=== PATIENT | male | born 1960 | race Hispanic/Latino ===

== ENCOUNTER 2023-05-06 21:35 | Emergency (ER) | payer OTHER ==
[~2023-05-06] VITALS: Ht 188 cm; Wt 99.8 kg
[2023-05-06] MEDS ORDERED: HYDRALAZINE HCL 20 MG/ML VIAL ONE (22:35)
[2023-05-06 22:45] LABS: BASOPHILS % 0.4 % (0.0-1.0); EOSINOPHILS % 0.3 % (0.0-6.0); HEMATOCRIT 44.1 % (38.2-49.6); HEMOGLOBIN 14.9 g/dL (14.0-18.0); LYMPHOCYTES # (AUTO) 1.6 (1.0-3.2); LYMPHOCYTES % 22.1 % (18.0-39.1); MEAN CORPUSCULAR HEMOGLOBIN 29.4 pg (28-32); MEAN CORPUSCULAR HGB CONC 33.8 g/dL (31-35); MEAN CORPUSCULAR VOLUME 87.2 fL (81-99); MONOCYTES # (AUTO) 0.7 (0.2-0.8); MONOCYTES % 10.2 % (4.4-11.3); NEUTROPHILS # (AUTO) 4.7 (2.1-6.9); NEUTROPHILS % 66.9 % (38.7-80.0); PLATELET COUNT 235 x10e3/uL (140-360); RED BLOOD COUNT 5.06 x10e6/uL (4.3-5.7); RED CELL DISTRIBUTION WIDTH 13.6 % (11.7-14.4); WHITE BLOOD COUNT 7.05 x10e3/uL (4.8-10.8)
[2023-05-06 22:48] VITALS: BP 207/112
[2023-05-06] MEDS: SODIUM CHLORIDE 0.9% 1000ML 1,000 ML IV STA (22:48)
[2023-05-06] MEDS: HYDRALAZINE HCL 20 MG/ML VIAL IV STA (22:48)
[2023-05-06 23:06] LABS: ALBUMIN 4.2 g/dL (3.5-5.0); ALBUMIN/GLOBULIN RATIO 1.1 (0.8-2.0); ANION GAP 13.9 mmol/L (8-16); BILIRUBIN,TOTAL 1.2 mg/dL (0.2-1.2); CALCIUM 9.9 mg/dL (8.4-10.2); CREATININE, SERUM 1.49 mg/dL (0.72-1.25); POTASSIUM 3.9 mmol/L (3.5-5.1); TOTAL PROTEIN 8.2 g/dL (6.5-8.1)
[2023-05-06 23:13] LABS: TROPONIN I 0.024 ng/mL (0-0.300)
[2023-05-07] MEDS ORDERED: PAXLOVID 150-11 EAC1 PO (00:37)
[2023-05-07] MEDS ORDERED: LOPRESSOR25 MG PO (00:40)
[2023-05-07] MEDS ORDERED: ISOSORBIDE MONO30 MG PO (00:40)
[2023-05-07] MEDS ORDERED: HYDROCHLOROTHIA25 MG PO (00:40)
[2023-05-07] MEDS ORDERED: NIFEDIPINE ER30 M1 PO (00:40)
[2023-05-07] MEDS ORDERED: DIOVAN80 MG PO (00:40)
[2023-05-07 00:54] VITALS: O2SAT 99
== END 2023-05-07 00:54 | disposition home or self-care (01) ==
LOC: ER 21:43
DX: R51.9 Headache, unspecified (principal); U07.1 COVID-19; I16.0 Hypertensive urgency
CPT/HCPCS: 36415; 70450; 71045; 80053; 82550; 83690; 83880; 84484; 85025; 93005; 99284; J0360; J7030; U0002